=== PATIENT | female | born 1995 | race Caucasian/White ===

== ENCOUNTER 2016-09-03 18:34 | Emergency (ER) | payer BC ==
[~2016-09-03] VITALS: Ht 165.1 cm; Wt 65.9 kg
[~2016-09-03 18:34] MED LIST: IBU800 M1 PO; PERCOCET 325 MG1 TA2 PO; PRENATAL1 TA7
[2016-09-03 18:59] VITALS: BP 96/58; TEMP 97.8
[2016-09-03 21:18] VITALS: PULSE 82
== END 2016-09-03 21:19 | disposition home or self-care (01) ==
LOC: COL.ER 18:34
DX: S43.084A Other dislocation of right shoulder joint, initial encounter (principal); V92.03XA Drowning and submersion due to fall off other powered watercraft, initial encounter
CPT/HCPCS: J3010; J3360

== ENCOUNTER → 2016-09-26 | Outpatient (CLI) | payer BC | LOC: COL.RAD 13:21 | DX: S43.491A Other sprain of right shoulder joint, initial encounter (principal) | CPT/HCPCS: A9585; Q9967 ==

== ENCOUNTER → 2016-12-15 | Outpatient (CLI) | payer BC | LOC: COL.RAD 09:12 | DX: M71.312 Other bursal cyst, left shoulder (principal); S43.492A Other sprain of left shoulder joint, initial encounter; Z98.890 Other specified postprocedural states | CPT/HCPCS: A9585; Q9967 ==

== ENCOUNTER → 2020-06-16 | Outpatient (CLI) | payer BC ==
[~2020-06-16] MED LIST changes: +IBU600 MG PO; +LEXAPRO20 MG PO; +PRENATAL TABLET PO; +STOOL SOFTENER100 M2 PO; +ZOFRAN8 MG PO
== END | disposition still patient (30) ==
LOC: ZCOL.LAB 02:11 → LDRO 07-07 08:27
DX: Z20.822 Contact with and (suspected) exposure to COVID-19 (principal)

== ENCOUNTER 2020-06-18 07:00 | Inpatient (IN) | payer BC ==
[2020-06-18] VITALS (43 sets, daily range): BP systolic 96–141; BP diastolic 46–90; PULSE 58–102; TEMP 97.4–98.6
[~2020-06-18] VITALS: Ht 162.7 cm; Wt 89.1 kg
[~2020-06-18 07:00] MED LIST changes: -IBU600 MG PO; -LEXAPRO20 MG PO; -PRENATAL TABLET PO; -STOOL SOFTENER100 M2 PO; -ZOFRAN8 MG PO
--- NOTE | 2020-06-18 07:20 | NUR ---
Patient ambulates to LR4 with spouse, changed into gown and UDS obtained at this times, FHR/TOCO monitors placed and explained. Patient here for 37.2week induction due to pylecetasis and polyhydramnios. Patient denies any regular contractions, leaking of fluid, vaginal bleeding, or decreased movement. Plan of care discussed and questions answered. 0730: SVE 50/-3 and ballotable. Patient tolerates well. 0735: IV started in left hand and blood obtained and to lab. Consents discussed and signed, assessment completed, packet given. Patient states that she smokes occasianal cigarettes daily, denies the use of drug use. 0801: Pitocin induction discussed and patient agrees with plan. Pitocin started at 2mU/hr per protocol at this time. 0817: FHR baseline 120-125bpm, decreasing to 70-95bpm for approx. 5 minutes, patient was turned left lateral and right lateral and pitocin was shut off at 0820. FHR gradually returns to baseline of 120bpm. 0842: Dr. Jenkins called and updated and physician orders to start pitocin again. Patient updated on plan of care.
[2020-06-18 08:35] LABS: BASO % 0.1 % (0.0-2.0); EOS % 0.5 % (0-4.0); GRAN # 5.7 (1.4-6.5); GRAN % 74.9 % (42.2-75.2); HEMATOCRIT 37.1 % (37.0-47.0); HEMOGLOBIN 12.6 g/dl (12.5-16.0); LYMPH # 1.2 (1.2-3.4); LYMPH % 15.2 % (20.0-51.0); MEAN CELL VOLUME 94 fl (80.0-100.0); MEAN CORPUSCULAR HEMOGLOBIN 32 pg (27.0-31.0); MEAN CORPUSCULAR HGB CONC 34 g/dl (33.0-37.0); MEAN PLATELET VOLUME 12.7 fl (7.4-10.4); MONO # 0.6 (0.1-0.6); MONO % 8.2 % (1.7-9.3); PLATELET COUNT 114 K/mm3 (130-400); RED BLOOD COUNT 3.93 M/mm3 (4.10-5.30); REDCELL DISTRIBUTION WIDTH-CV 13.4 % (11.5-14.5)
[2020-06-18 08:41] LABS: ALBUMIN 3.3 gm/dL (3.5-5.0); BILIRUBIN,TOTAL 0.3 mg/dL (0.0-1.0); CREATININE, serum 0.62 (0.52-1.25); POTASSIUM 3.8 mmol/L (3.4-5.0)
[2020-06-18 08:42] LABS: TRICYCLIC ANTIDEPRESS URINE NEGATIVE
[2020-06-18] MEDS ORDERED: LEXAPRO20 MG PO (09:00)
[2020-06-18] MEDS ORDERED: ZOFRAN8 MG PO (09:01)
[2020-06-18] MEDS ORDERED: PRENATAL TABLET PO (09:01)
[2020-06-18] MEDS ORDERED: STOOL SOFTENER100 M2 PO (09:01)
--- NOTE | 2020-06-18 11:15 | NUR ---
Dr. Jenkins at nurses station and updated. 1120: Dr. Jenkins at bedside and assessing patient and FHR strip. Physician updates patient on plan of care. Patient informed that UDS is positice for MJ. Patient states "I last used about 2 weeks ago or so". Dr. Jenkins informs patient that hands parter will not allow until UDS is clear, and that she will be able to pump and dump until then and baby can have formula bottle. Patient understands and agrees at this time. SONO done and vertex position confirmed. 1126: SVE per physician /3 and AROM with clear fluid noted. 1150: Patient to bathroom. 1153: Patient sitting on birthing ball and has no needs at this time.
--- NOTE | 2020-06-18 12:00 | NUR ---
Patient on birthing ball and monitor adjusted. 1250: Patient standing at bedside and more uncomfortable with contractions. 1330: SVE-8//-1 and bulgy forebag noted. Patient tolerates well. Dr. Jenkins called and notified. See physician notification. 1350: Patient states she is starting feel more pressure. 1354: Dr. Jenkins called to come to hospital. 1355: SVE-8/-1 and Forebag ruptures at this time. Patient requests epidrual. 1358: Petar Brownlee CRNA called and notified. 1400: Dr. Jenknis at bedside 1420: Patient sitting up for epidural. Difficulty tracing FHR due to maternal position. Surendra BERTRAND at bedside. 1427: Test dose done and patient tolerates well. 1430: Patient refusing to lay back at this time, this RN and Mat assisting patient to reposition. 1440: Patent left lateral. FHR 125bpm. 1445: SVE-/0 and straight catherized at this time. 1446: FHR baseline 125bpm and decreasing 95bpm. Patient right lateral. FHR continues to trace 70-90bpm. Pitocin off. Dr. Jenkins at bedside. SVE per physician 0 and FSE placed. Patient left lateral. Dr. Jenkins discussing the need for and risks. Patient and spouse agree. 1556: Patient hands/knees position and FHR continues to trace 70-90bpm. 1500: Patient off monitors and to OR. 1503: FHR doppler per FSE-105bpm.
[2020-06-18] MEDS ORDERED: PERCOCET 325 MG1 TA2 PO (17:05)
[2020-06-18] MEDS ORDERED: IBU600 MG PO (17:05)
[2020-06-19 04:30] VITALS: BP 110/49; PULSE 79; TEMP 97.7
[2020-06-19 07:17] LABS: HEMATOCRIT 30.4 % (37.0-47.0); HEMOGLOBIN 10.3 g/dl (12.5-16.0)
[2020-06-19 07:30] VITALS: BP 105/62; PULSE 70; TEMP 98.2
--- NOTE | 2020-06-19 08:30 | NUR ---
Pt reports that she had taken her Lexapro and vitamins last night.
--- NOTE | 2020-06-19 11:00 | NUR ---
Pt given 10ml of frozen EBM in bag of ice, verified with JOLEEN Barbour.
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
== END 2020-06-19 11:10 | disposition home or self-care (01) | DRG 787 ==
LOC: LDR 07:00 → OB 13:30
PROVIDERS: ADMIT Obstetrics & Gynecology
PROC: 10D00Z1 Extraction of Products of Conception, Low, Open Approach (ICD-10-PCS; principal; 2020-06-18)
DX: O76 Abnormality in fetal heart rate and rhythm complicating labor and delivery (principal); O99.324 Drug use complicating childbirth; O99.12 Other diseases of the blood and blood-forming organs and certain disorders involving the immune mechanism complicating childbirth; N13.30 Unspecified hydronephrosis; O99.344 Other mental disorders complicating childbirth; F12.90 Cannabis use, unspecified, uncomplicated; O40.3XX0 Polyhydramnios, third trimester, not applicable or unspecified; Z3A.37 37 weeks gestation of pregnancy; Z37.0 Single live birth; O99.892 Other specified diseases and conditions complicating childbirth; O26.893 Other specified pregnancy related conditions, third trimester; Z67.41 Type O blood, Rh negative
CPT/HCPCS: J0690; J1100; J1885; J2400; J2405; J2590; J2791; J2795; J7120